=== PATIENT | male | born 1945 | race Caucasian/White ===

== ENCOUNTER 2016-10-14 17:52 | Emergency (ER) | payer OTHER ==
[~2016-10-14] VITALS: Ht 172.7 cm; Wt 70.9 kg
[~2016-10-14 17:52] MED LIST: ANALGESIC325 M1 G-TUBE; ASPIRIN81 M2 PO; ATORVASTATIN CA10 MG PO; BACTRIM,SEPT1 TABLET PO; BAYER ASPIRIN325 M1 PO; BUSPAR5 M1 PO; BUSPAR5 MG PO; COLACE100 MG PO; DEPAKOTE500 MG PO; ENDOCET 5-3251 EACH PO; FLONASE16 GM NS; FLOVENT 11120 INHALA IH; GANI-TUSS-DM N473 ML PO; GLUCOPHAGE850 MG PO; HUMALOG (UNIT)1 UNIT SC; HUMALOG100 UNIT/1 SC; KEFLEX500 MG PO; LANTUS (UNITS)1 UNIT IV; LANTUS (UNITS)1 UNIT SC; LANTUS 10100 UNITS/ SC; LEXAPRO10 MG PO; LEXAPRO20 MG PO; LOPRESSOR100 MG PO; METOPROLOL TART25 MG PO; OMEPRAZOLE20 MG PO; OYSTER CALCIUM500 MG PO; PLETAL100 MG PO; PRINIVIL10 MG PO; PRINIVIL20 MG PO; PROVENTIL,2.5 MG/0.5 IH; RISPERDAL0.5 MG PO; ROBINUL1 MG PO; SENNA PLUS TAB1 EACH PO; SIMVASTATIN80 M1 G-TUBE; STOOL SOFTENER100 MG PO; TRAZODONE HCL50 MG PO; TYLENOL REGULA325 MG PO; TYLENOL325 M1 PO; VENLAFAXINE HC150 MG PO; ZOFRAN ODT4 MG PO
[2016-10-14 18:57] LABS: EOSINOPHIL (%) 3.8 % (0-5); EOSINOPHIL COUNT 0.3 K/uL (0-0.3); HEMATOCRIT 38.2 % (38.0-50.0); IMMATURE GRANULOCYTE (%) 0.4 % (0.0-0.7); IMMATURE GRANULOCYTE COUNT 0.3 K/uL; LYMPHOCYTE COUNT 1.3 K/uL (1.0-2.8); MCH 29.4 PG (29.0-34.0); MCHC 33.8 G/DL (30.0-36.0); MEAN PLAT.VOLUME 11.6 uM^3 (9.0-12.4); MONOCYTE (%) 15.2 % (3-12); MONOCYTE COUNT 1.1 K/uL (0-0.8); NEUTROPHIL (%) 62.4 % (45-76); NEUTROPHIL COUNT 4.5 K/uL (1.8-6.4); PLATELET COUNT 186 K/uL (156-360); RBC DIS.WIDTH-CV 13.7 % (11.8-14.6); RBC DIS.WIDTH-SD 42.7 % (39-53); RED BLOOD COUNT 4.39 M/uL (4.00-5.50); WHITE BLOOD COUNT 7.3 K/uL (4.1-10.2)
[2016-10-14 20:05] LABS: TROP-I INTERPRETATION NEGATIVE; TROPONIN-I < 0.01 ng/mL (0.0-0.30)
[2016-10-14 20:09] LABS: ANION GAP 6 MEQ/L (2-14); CHLORIDE 104 MEQ/L (99-109); POTASSIUM 4.1 MEQ/L (3.7-5.4); SAMPLE HEMOLYSIS CHECK 0; SAMPLE ICTERIC CHECK 0; SAMPLE LIPEMIA CHECK 0; SODIUM 139 MEQ/L (136-147)
[2016-10-14 20:14] LABS: GFR ESTIMATE (CALCULATED) > 59 mL/min/; GLUCOSE 80 mg/dL (70-99); UREA NITROGEN (BUN) 16 mg/dL (9-23)
[2016-10-14] MEDS ORDERED: LEVAQUIN750 MG PO (20:15)
[2016-10-14] MEDS ORDERED: NOVOLOG 10100 UNITS/ SC (21:39)
[2016-10-14] MEDS ORDERED: HUMALOG100 UNIT/1 SC (21:41)
[2016-10-14] MEDS ORDERED: TYLENOL REGULA325 MG PO ×2 (21:42→21:47)
[2016-10-14] MEDS ORDERED: ASPIRIN81 M2 PO (21:42)
[2016-10-14] MEDS ORDERED: CITALOPRAM HBR20 MG PO (21:43)
[2016-10-14] MEDS ORDERED: NEURONTIN100 MG PO (21:43)
[2016-10-14] MEDS ORDERED: LEXAPRO20 MG PO (21:44)
[2016-10-14] MEDS ORDERED: ROBINUL1 MG PO (21:44)
[2016-10-14] MEDS ORDERED: ZESTRIL5 MG PO (21:45)
[2016-10-14] MEDS ORDERED: METOPROLOL TART25 MG PO (21:45)
[2016-10-14] MEDS ORDERED: IPRATR-ALBUTEROL3 ML IH (21:46)
[2016-10-14] MEDS ORDERED: OXYCODONE-ACET1 EACH PO (21:47)
[2016-10-14] MEDS ORDERED: LANTUS 10100 UNITS/ SC (21:48)
[2016-10-14] MEDS ORDERED: CILOSTAZOL100 MG PO (21:49)
[2016-10-14 21:53] VITALS: BP 115/74
== END 2016-10-14 21:58 ==
LOC: EME 17:52
PROVIDERS: Emergency Medicine
DX: J44.0 Chronic obstructive pulmonary disease with (acute) lower respiratory infection (principal); J18.9 Pneumonia, unspecified organism; R07.9 Chest pain, unspecified; J45.909 Unspecified asthma, uncomplicated; E11.9 Type 2 diabetes mellitus without complications; M79.7 Fibromyalgia; E78.5 Hyperlipidemia, unspecified; I10 Essential (primary) hypertension; K21.9 Gastro-esophageal reflux disease without esophagitis; F03.90 Unspecified dementia, unspecified severity, without behavioral disturbance, psychotic disturbance, mood disturbance, and anxiety; Z87.442 Personal history of urinary calculi; Z86.73 Personal history of transient ischemic attack (TIA), and cerebral infarction without residual deficits; Z87.891 Personal history of nicotine dependence; Z79.4 Long term (current) use of insulin; Z79.82 Long term (current) use of aspirin
CPT/HCPCS: 71020; 80048; 84484; 85025; 93005; 99281; 99285

== ENCOUNTER → 2018-03-28 | Outpatient (CLI) | payer OTHER ==
[~2018-03-28] MED LIST changes: +AUGMENTIN875 MG PO; +CILOSTAZOL100 MG PO; +CITALOPRAM HBR20 MG PO; +IPRATR-ALBUTEROL3 ML IH; +LEVAQUIN750 MG PO; +NEURONTIN100 MG PO; +NOVOLOG 10100 UNITS/ SC; +ONDANSETRON ODT4 MG PO; +OXYCODONE-ACET1 EACH PO; +PROCARDIA XL30 MG PO; +ZANAFLEX2 M1 PO; +ZESTRIL5 MG PO
== END | disposition home or self-care (01) ==
LOC: RAD 13:34
DX: N28.89 Other specified disorders of kidney and ureter (principal)
CPT/HCPCS: 71250

== ENCOUNTER 2018-04-18 20:30 | Inpatient (IN) | payer OTHER ==
[~2018-04-18] VITALS: Ht 172.7 cm; Wt 66.4 kg
[~2018-04-18 20:30] MED LIST changes: +LEXAPRO5 MG PO
[2018-04-18 21:37] LABS: BASOPHIL (%) 0.4 % (0-1); BASOPHIL COUNT 0.1 K/uL (0-0.1); EOSINOPHIL (%) 0.3 % (0-5); HEMATOCRIT 48.1 % (38.0-50.0); HEMOGLOBIN 15.7 G/DL (12.5-16.6); IMMATURE GRANULOCYTE (%) 0.6 % (0.0-0.7); LYMPHOCYTE (%) 10.9 % (15-42); LYMPHOCYTE COUNT 1.6 K/uL (1.0-2.8); MCH 30.3 PG (29.0-34.0); MCHC 32.6 G/DL (30.0-36.0); MCV 92.9 FL (86-99); MONOCYTE (%) 9.3 % (3-12); MONOCYTE COUNT 1.3 K/uL (0-0.8); NEUTROPHIL (%) 78.5 % (45-76); NEUTROPHIL COUNT 11.4 K/uL (1.8-6.4); PLATELET COUNT 144 K/uL (156-360); RBC DIS.WIDTH-CV 13.2 % (11.8-14.6); RBC DIS.WIDTH-SD 45.1 % (39-53); RED BLOOD COUNT 5.18 M/uL (4.00-5.50); WHITE BLOOD COUNT 14.4 K/uL (4.1-10.2)
[2018-04-18 21:43] LABS: INTER. NORMALIZED RATIO 1.2
[2018-04-18 21:46] LABS: PTT 45.1 SEC (25-37)
[2018-04-18 21:47] LABS: ALBUMIN 3.6 g/dL (3.2-4.8); CHLORIDE 115 mEq/L (99-109); POTASSIUM 3.6 mEq/L (3.7-5.4); SODIUM 154 mEq/L (136-147)
[2018-04-18 21:50] LABS: TOTAL PROTEIN 6.9 g/dL (6.4-8.3)
[2018-04-18 21:52] LABS: TOTAL BILIRUBIN 1.1 mg/dL (0.0-1.0)
[2018-04-18 21:53] LABS: ALKALINE PHOSPHATASE 106 IU/L (3-129)
[2018-04-18 21:54] LABS: CREATININE 1.5 mg/dL (0.6-1.3); GFR ESTIMATE (CALCULATED) 49 mL/min/ (58.99-99999)
[2018-04-18 21:55] LABS: AST (GOT) 18 IU/L (2-34); DIRECT BILIRUBIN 0.3 mg/dL (0.0-0.3); UREA NITROGEN (BUN) 42 mg/dL (9-23)
[2018-04-18 21:56] LABS: ALT (GPT) 17 IU/L (3-49)
[2018-04-18 21:57] LABS: LIPASE 14 U/L (1.0-51.0)
[2018-04-18 21:59] LABS: GLUCOSE 464 mg/dL (70-99); TROP-I INTERPRETATION NEGATIVE; TROPONIN-I < 0.01 ng/mL (0.0-0.30)
[2018-04-18] MEDS ORDERED: CEFTIN500 MG PO (22:01)
[2018-04-18] MEDS ORDERED: NOVOLOG 10100 UNITS/ SC (22:02)
[2018-04-18] MEDS ORDERED: AMLODIPINE BESYL5 MG PO (22:03)
[2018-04-18 22:46] LABS: APPEARANCE CLEAR ((CLEAR)); BILIRUBIN NEGATIVE; BLOOD SMALL; COLOR YELLOW ((YELLOW)); GLUCOSE (STRIP) >=500; KETONES NEGATIVE; LEUKOCYTES TRACE; NITRITE NEGATIVE; PROTEIN (STRIP) 30; SPECIFIC GRAVITY 1.024 (1.000-1.030)
[2018-04-18 22:53] LABS: BACTERIA RARE /HPF; EPITHELIAL CELLS 1+ /HPF; MUCUS TRACE /LPF; RED BLOOD CELLS NONE SEEN /HPF (0-5); UCUL ADDED? YES
[2018-04-19 01:25] VITALS: BP 130/65
[2018-04-19 06:55] VITALS: BP 133/59
[2018-04-19 11:09] VITALS: BP 138/77
[2018-04-19 16:15] VITALS: BP 122/58
[2018-04-19 19:25] VITALS: BP 125/66
[2018-04-19 22:48] VITALS: BP 124/68
[2018-04-20 03:52] VITALS: BP 137/69
[2018-04-20 06:51] LABS: HEMATOCRIT 41.3 % (38.0-50.0); MCH 29.3 PG (29.0-34.0); MCHC 31.5 G/DL (30.0-36.0); PLATELET COUNT 129 K/uL (156-360); RBC DIS.WIDTH-CV 13.1 % (11.8-14.6); RBC DIS.WIDTH-SD 44.4 % (39-53); RED BLOOD COUNT 4.44 M/uL (4.00-5.50); WHITE BLOOD COUNT 10.3 K/uL (4.1-10.2)
[2018-04-20 06:59] VITALS: BP 130/81
[2018-04-20 07:02] LABS: ALBUMIN 2.9 G/DL (3.2-4.8); ALKALINE PHOSPHATASE 83 IU/L (3-129); ALT (GPT) 14 IU/L (3-49); AST (GOT) 12 IU/L (2-34); CHLORIDE 120 MEQ/L (99-109); CREATININE 1.2 MG/DL (0.6-1.3); GFR ESTIMATE (CALCULATED) > 59 mL/min/ (58.99-99999); GLUCOSE 350 mg/dL (70-99); POTASSIUM 3.6 MEQ/L (3.7-5.4); SODIUM 156 MEQ/L (136-147); TOTAL BILIRUBIN 0.6 MG/DL (0.0-1.0); UREA NITROGEN (BUN) 36 mg/dL (9-23)
[2018-04-20 07:12] LABS: TOTAL PROTEIN 5.4 G/DL (6.4-8.3)
[2018-04-20 11:10] VITALS: BP 140/74
[2018-04-20 12:50] LABS: GLUCOSE 396 mg/dL (70-99)
[2018-04-20 15:33] VITALS: BP 133/70
[2018-04-20 23:04] VITALS: BP 129/79
[2018-04-21 06:04] LABS: CHLORIDE 119 MEQ/L (99-109); CREATININE 0.9 MG/DL (0.6-1.3); GFR ESTIMATE (CALCULATED) > 59 mL/min/ (58.99-99999); POTASSIUM 3.7 MEQ/L (3.7-5.4); SODIUM 155 MEQ/L (136-147); UREA NITROGEN (BUN) 23 mg/dL (9-23)
[2018-04-21 06:05] LABS: GLUCOSE 169 mg/dL (70-99)
[2018-04-21 07:05] VITALS: BP 156/87
[2018-04-21 15:50] VITALS: BP 139/72
[2018-04-21 22:29] VITALS: BP 126/64
[2018-04-22 07:05] VITALS: BP 160/77
[2018-04-22 23:40] VITALS: BP 162/83
[2018-04-23 08:03] VITALS: BP 132/89
== END 2018-04-23 12:17 | DRG 947 ==
LOC: EME → EDBD 20:30 → EME 20:30 → 5EAST 22:40 → EDOF 22:40 → ENRESERV 22:47 → 5EAST 04-19 00:57 → ENPENDDIS 04-23 12:00 → 5EAST 04-23 12:17
PROVIDERS: Emergency Medicine; Internal Medicine
DX: R41.82 Altered mental status, unspecified (principal); N39.0 Urinary tract infection, site not specified; B96.20 Unspecified Escherichia coli [E. coli] as the cause of diseases classified elsewhere; E11.65 Type 2 diabetes mellitus with hyperglycemia; N17.9 Acute kidney failure, unspecified; E87.0 Hyperosmolality and hypernatremia; E87.2 Acidosis; J69.0 Pneumonitis due to inhalation of food and vomit; G30.9 Alzheimer's disease, unspecified; F02.80 Dementia in other diseases classified elsewhere, unspecified severity, without behavioral disturbance, psychotic disturbance, mood disturbance, and anxiety; J44.9 Chronic obstructive pulmonary disease, unspecified; M79.7 Fibromyalgia; K21.9 Gastro-esophageal reflux disease without esophagitis; I10 Essential (primary) hypertension; E78.5 Hyperlipidemia, unspecified; F41.9 Anxiety disorder, unspecified; R00.0 Tachycardia, unspecified; F32.9 Major depressive disorder, single episode, unspecified; Z66 Do not resuscitate; Z86.73 Personal history of transient ischemic attack (TIA), and cerebral infarction without residual deficits; Z79.4 Long term (current) use of insulin; Z87.891 Personal history of nicotine dependence
CPT/HCPCS: 36415; 70450; 71045; 71046; 80048; 80053; 80076; 81003; 82948; 83605; 83690; 83880; 84484; 84999; 85025; 85027; 85610; 85730; 87040; 87086; 93005; 94799; 99281; 99285; J0696; J1650; J1815; J2543; J3370; J7030